=== PATIENT | female | born 1925 | race Caucasian/White ===

== ENCOUNTER 2016-09-02 08:06 | Emergency (ER) | payer MEDICARE ==
[2016-09-02] MEDS ORDERED: NS 0.9% 1000 ML* 2,000 ML IV ONE (08:58)
[2016-09-02 09:53] LABS: Hematocrit 47 % (35-47); Mean Corpuscular HGB Conc 32 g/dl (31-36); Mean Corpuscular Hemoglobin 30 pg (27-31); Mean Corpuscular Volume 92 fL (80-97); Mean Platelet Volume 8 um3 (7.4-10.4); Red Blood Count 5.08 10^6/ul (4.0-5.4); Red Cell Distribution Width 14 % (10.5-15); White Blood Count 6.9 10^3/ul (3.5-10.8)
[2016-09-02 10:07] LABS: Albumin 3.6 g/dL (3.2-5.2); BUN/Creatinine Ratio 29.1 (8-20); C Reactive Protein 4.13 mg/L (< 5.00); Calcium 8.9 mg/dL (8.6-10.3); EGFR African American 88.1 (>60); EGFR Non-African American 68.5 (>60); Globulin 3.4 g/dL (2-4); Potassium 4.2 mmol/L (3.5-5.0); Total Bilirubin 0.4 mg/dL (0.2-1.0)
[2016-09-02] MEDS ORDERED: Iohexol 300* (CONTRAST) 10 ML SDV IV ONE (10:10)
--- NOTE | 2016-09-02 12:24 | RAD ---
Indication: Right lower quadrant pain, colitis and rectal bleeding. Contrast: Administered 85.0 ml of OMNIPAQUE 300 mgi/ml CT of the abdomen and pelvis was performed after oral and IV contrast administration. Coronal and sagittal reconstructed images were obtained. Comparison is made with previous exam dated November 26, 2012. Lung bases demonstrate no pleural fluid, nodules or masses. Heart is of normal size without evidence of pericardial effusion. Liver is normal in size. No focal lesions or intrahepatic biliary duct dilatation is noted. The gallbladder demonstrates no calcified gallstones. No pericholecystic fluid or wall thickening is identified. Common duct is not dilated. The pancreas demonstrates no mass or pancreatic ductal dilatation. Calcifications of the pancreas are noted which is felt to represent splenic artery calcifications. Additional pancreatic calcifications are noted in the head of the pancreas this may be sequela from prior pancreatitis. The spleen is normal in size. No adrenal masses are noted. The kidneys demonstrates no hydronephrosis. Small cortical cysts are noted in the right kidney. Atherosclerotic aorta is noted. No dilated small bowel noted. CT of the pelvis demonstrates iliac arteries to be unremarkable. Prostate is unremarkable. Diverticulosis without definite evidence of diverticulitis is noted. Urinary bladder is unremarkable. No hernias are noted. No evidence of bowel obstruction is noted. IMPRESSION: No evidence of bowel obstruction is noted. Diverticulosis sigmoid colon without definite evidence of diverticulitis. No other masses or fluid collections are noted. There is evidence of prior pancreatitis.
[2016-09-02 13:26] VITALS: BP 157/65
--- NOTE | 2016-09-02 14:00 | ED ---
Asuncion Mederos Auryana, scribed for Eh Elizondo MD on 09/02/16 at 0912 . GI/ HPI - HPI Summary HPI Summary: 89 year old female presents with abnormal bowel movements starting yesterday. Patient states "air-like" BM with blood containing mucus- started as bright red yesterday but is now dark red today. She reports colicy abdominal pressure, BREWSTER - patient reports normal, and lower extremity edema but denies nausea, dizziness , abdominal pain, chest pain, or any straining with BMs. Her last normal BM was 2 days ago - no melena, blood, or mucus. She denies any previous episodes. PMHx is significant for CAD-suspected, 3 sections, hysterectomy with appendectomy. NO PMHx of diverticulosis, hemorrhoids, or DM. No previous colonoscopy and no FMHx of colon CA She is a former smoker. - History of Current Complaint Chief Complaint: EDGIBleed Time Seen by Provider: 09/02/16 08:12 Stated Complaint: RECTAL BLEEDING Hx Obtained From: Patient Onset/Duration: Started Days Ago - 1, Still Present Timing: Constant Severity: Mild Current Severity: Mild Pain Intensity: 0 Location of Pain: RLQ, LLQ Pain Characteristics: Colicy - not pain Associated Signs and Symptoms: Positive: Abdominal Pain - states pressure not pain, Other: - SOB - but nml per patient, LE edema - per patient. Negative: Dizziness, Nausea, External Hemorrhoid, Diarrhea, Fever, Chest Pain - Allergy/Home Medications Allergies/Adverse Reactions: Allergies Allergy/AdvReac Type Severity Reaction Status Date / Time Amoxicillin AdvReac Severe Nausea And Verified 09/02/16 08:25 Vomiting Benazepril AdvReac Severe Coughing Verified 09/02/16 08:25 Benzonatate AdvReac Severe Nausea And Verified 09/02/16 08:25 Vomiting Levofloxacin [From Levaquin] AdvReac Severe Nausea And Verified 09/02/16 08:25 Vomiting Aspirin AdvReac Mild See Comment Verified 09/02/16 08:25 some antibiotics AdvReac Severe Nausea And Uncoded 09/02/16 08:25 Vomiting PMH/Surg Hx/FS Hx/Imm Hx Endocrine/Hematology History: Denies: Hx Sickle Cell Disease Cardiovascular History: Reports: Hx Hypertension - WELL CONTROLLED WITH MEDICATION, Other Cardiovascular Problems/Disorders - LBBB, FOLLOWED BY DR. MARIE GI History: Reports: Hx Ulcer - HX OF DUODENAL ULCER, Other GI Disorders - VERY SENSATIVE TO ABX, CAUSE GI UPSET History: Denies: Other Problems/Disorders Musculoskeletal History: Reports: Hx Arthritis - GENERALIZED, Other Musculoskeletal History - NECK PROBLEMS, BACK PROBLEMS T8-9, SEES CHIROPRACTOR Sensory History: Reports: Hx Cataracts - BILAT, HAS HAD SURGERY WITH IMPLANTS, Hx Contacts or Glasses - GLASSES, Hx Glaucoma Denies: Hx Hearing Aid Opthamlomology History: Reports: Hx Cataracts - BILAT, HAS HAD SURGERY WITH IMPLANTS, Hx Contacts or Glasses - GLASSES, Hx Glaucoma Neurological History: Reports: Hx Nerve Disease - CARPAL TUNNEL LEFT - Cancer History Cancer Type, 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 1953 HYSTERECTOMY-[facility]. 2011 BILATERAL CATARACT SURG- [facility] [place] LEFT CARPAL TUNNEL RELEASE- [facility] [place]. [place]- [facility], LEFT BACK-[facility] [place] Hx Anesthesia Reactions: No Infectious Disease History: No Infectious Disease History: Denies: Traveled Outside the [place] in Last 30 Days - Social History Occupation: Retired Lives: With Family Alcohol Use: None Substance Use Type: Reports: None Smoking Status (MU): Former Smoker Amount Used/How Often: 1 PPD FOR 31 YRS Length of Time of Smoking/Using Tobacco: 31 YRS Have You Smoked in the Last Year: No Review of Systems Constitutional: Negative Negative: Fever Eyes: Negative ENT: Negative Cardiovascular: Negative Negative: Chest Pain Positive: Shortness Of Breath - normal per patient Positive: Abdominal Pain - colicy not pain . Negative: Nausea Genitourinary: Negative Musculoskeletal: Negative Skin: Negative Neurological: Negative Psychological: Normal All Other Systems Reviewed And Are Negative: Yes Physical Exam - Summary Physical Exam Summary: The patient is well-nourished in no acute distress and in no acute pain. The skin is warm and dry and skin color reflects adequate perfusion. skin turgor. HEENT: The head is normocephalic and atraumatic. The pupils are equal and reactive. The conjunctivae are clear and without drainage. Nares are patent and without drainage. Mouth reveals dry mucous membranes and the throat is without erythema and exudate. The external ears are intact. The ear canals are patent and without drainage. The tympanic membranes are intact. No hemotypanum. Neck is supple with full range of motion and non-tender. There are no carotid bruits. There is no neck vein distension. Respiratory: Chest is non-tender. Lungs are clear to auscultation and breath sounds are symmetrical and equal. Cardiovascular: Heart has a regular rate and rhythm. There is no murmur or rub auscultated. There is no pitting peripheral edema and pulses are symmetrical and equal. Abdomen: The abdomen is soft. RLQ pain with deep palpation. There are normal bowel sounds heard in all four quadrants and there is no organomegaly palpated. Normal bowel sounds. Musculoskeletal: There is no back pain noted. Extremities are non-tender with full range of motion. There is good capillary refill. There is no peripheral edema or calf tenderness elicited. Neurological: Patient is alert and oriented to person, place and time. The patient has symmetrical motor strength in all four extremities. Cranial nerves are grossly intact. Deep tendon reflexes are symmetrical and equal in all four extremities. Psychiatric: The patient has an appropriate affect and does not exhibit any anxiety or depression. Rectal exam - no external hemorrhoids and no internal masses. No anal fissures. Blood present. Triage Information Reviewed: Yes Vital Signs On Initial Exam: Initial Vitals Temp Pulse Resp BP Pulse Ox 98.9 F 83 20 180/78 95 09/02/16 08:09 09/02/16 08:09 09/02/16 08:09 09/02/16 08:09 09/02/16 08:09 Vital Signs Reviewed: Yes Diagnostics - Vital Signs Vital Signs Temp Pulse Resp BP Pulse Ox 09/02/16 08:12 99.2 F 85 16 180/78 94 09/02/16 08:09 98.9 F 83 20 180/78 95 - Laboratory Lab Results: Lab Results 09/02/16 09/02/16 09/02/16 Range/Units 09:30 09:30 09:30 WBC 6.9 (3.5-10.8) 10^3/ul RBC 5.08 (4.0-5.4) 10^6/ul Hgb 15.0 (12.0-16.0) g/dl Hct 47 (35-47) % MCV 92 (80-97) fL MCH 30 (27-31) pg MCHC 32 (31-36) g/dl RDW 14 (10.5-15) % Plt Count 158 (150-450) 10^3/ul MPV 8 (7.4-10.4) um3 Neut % (Auto) 77.2 (38-83) % Lymph % (Auto) 13.5 L (25-47) % Morton % (Auto) 8.5 (1-9) % Eos % (Auto) 0.1 (0-6) % Baso % (Auto) 0.7 (0-2) % Absolute Neuts (auto) 5.3 (1.5-7.7) 10^3/ul Absolute Lymphs (auto) 0.9 L (1.0-4.8) 10^3/ul Absolute Monos (auto) 0.6 (0-0.8) 10^3/ul Absolute Eos (auto) 0 (0-0.6) 10^3/ul Absolute Basos (auto) 0 (0-0.2) 10^3/ul Absolute Nucleated RBC 0 10^3/ul Nucleated RBC % 0 INR (Anticoag Therapy) 1.06 (0.89-1.11) Sodium 136 (133-145) mmol/L Potassium 4.2 (3.5-5.0) mmol/L Chloride 102 (101-111) mmol/L Carbon Dioxide 30 (22-32) mmol/L Anion Gap 4 (2-11) mmol/L BUN 23 (6-24) mg/dL Creatinine 0.79 (0.51-0.95) mg/dL Est GFR ( Amer) 88.1 (>60) Est GFR (Non-Af Amer) 68.5 (>60) BUN/Creatinine Ratio 29.1 H (8-20) Glucose 101 H (70-100) mg/dL Lactic Acid (0.5-2.0) mmol/L Calcium 8.9 (8.6-10.3) mg/dL Total Bilirubin 0.40 (0.2-1.0) mg/dL AST 16 (13-39) U/L ALT 10 (7-52) U/L Alkaline Phosphatase 62 (34-104) U/L Total Creatine Kinase 39 (10-223) U/L C-Reactive Protein 4.13 (< 5.00) mg/L Total Protein 7.0 (6.4-8.9) g/dL Albumin 3.6 (3.2-5.2) g/dL Globulin 3.4 (2-4) g/dL Albumin/Globulin Ratio 1.1 (1-3) Lipase 32 (11.0-82.0) U/L /09/14 Range/Units 09:30 WBC (3.5-10.8) 10^3/ul RBC (4.0-5.4) 10^6/ul Hgb (12.0-16.0) g/dl Hct (35-47) % MCV (80-97) fL MCH (27-31) pg MCHC (31-36) g/dl RDW (10.5-15) % Plt Count (150-450) 10^3/ul MPV (7.4-10.4) um3 Neut % (Auto) (38-83) % Lymph % (Auto) (25-47) % Morton % (Auto) (1-9) % Eos % (Auto) (0-6) % Baso % (Auto) (0-2) % Absolute Neuts (auto) (1.5-7.7) 10^3/ul Absolute Lymphs (auto) (1.0-4.8) 10^3/ul Absolute Monos (auto) (0-0.8) 10^3/ul Absolute Eos (auto) (0-0.6) 10^3/ul Absolute Basos (auto) (0-0.2) 10^3/ul Absolute Nucleated RBC 10^3/ul Nucleated RBC % INR (Anticoag Therapy) (0.89-1.11) Sodium (133-145) mmol/L Potassium (3.5-5.0) mmol/L Chloride (101-111) mmol/L Carbon Dioxide (22-32) mmol/L Anion Gap (2-11) mmol/L BUN (6-24) mg/dL Creatinine (0.51-0.95) mg/dL Est GFR ( Amer) (>60) Est GFR (Non-Af Amer) (>60) BUN/Creatinine Ratio (8-20) Glucose (70-100) mg/dL Lactic Acid 0.9 (0.5-2.0) mmol/L Calcium (8.6-10.3) mg/dL Total Bilirubin (0.2-1.0) mg/dL AST (13-39) U/L ALT (7-52) U/L Alkaline Phosphatase (34-104) U/L Total Creatine Kinase (10-223) U/L C-Reactive Protein (< 5.00) mg/L Total Protein (6.4-8.9) g/dL Albumin (3.2-5.2) g/dL Globulin (2-4) g/dL Albumin/Globulin Ratio (1-3) Lipase (11.0-82.0) U/L Result Diagrams: 09/02/16 09:30 09/02/16 09:30 Lab Statement: Any lab studies that have been ordered have been reviewed, and results considered in the medical decision making process. - CT ABD/PEL with contrast CT Interpretation: Positive (See Comments) - IMPRESSION: No evidence of bowel obstruction is noted. Diverticulosis sigmoid colonwithout definite evidence of diverticulitis. No other masses or fluid collections are noted. There is evidence of prior pancreatitis. CT Interpretation Completed By: Radiologist - EKG 09:01 EKG Interpretation: LBBB, L axis, sinus rhythm - Additional Comments Diagnostic Additional Comments: Stool Sample - positive blood Re-Evaluation - Re-Evaluation First Eval Re-Evaluation Time: 13:13 - dicussed labs, imaging, and plan of action Change: Unchanged Comment: patient wishes to go home. GIGU Course/Dx - Course Assessment/Plan: 89 year old female presents with blood in mucus. She states decreased BM - "air-like" with blood in mucus that was bright red yesterday but is not dark red. She reports colicy adbominal pressure, lower extremity edema. PMHx is significant for 3 sections and hysterectomy wiht appendectomy. Bloodwork , Stool sample (positive blood in mucus), EKG (LBBB, Left axis, sinus rhythm), ABD/PEL CT (diverticulosis) ordered. Discussed labwork, imaging and plan of action with patient and she wishes to go home. Diagnosis: Rectal Bleeding - recommended to return if her symptoms worsen or if she experiences fever, abdominal pain, increased bleeding, dizziness, or syncope. - Diagnoses Differential Diagnoses - Female: Colitis, Diverticulosis, Hemorrhoids, Other - tumor, diverticulitis Provider Diagnoses: Rectal bleed Discharge - Discharge Plan Condition: Stable Disposition: HOME Patient Education Materials: Rectal Bleeding (ED) Referrals: Lex Marie MD [Primary Care Provider] - 2 Days Additional Instructions: PLEASE RETURN IF SYMPTOMS PERSIST OR IF YOU DEVELOP ABDOMINAL PAIN, FEVER, INCREASED RECTAL BLEEDING, LIGHTHEADEDNESS, DIZZINESS, OR EXPERIENCE ANY FAINTING SPELLS OR SYNCOPE. The documentation as recorded by the Asuncion harrison Auryana accurately reflects the service I personally performed and the decisions made by , Eh Elizondo MD.
--- NOTE | 2016-09-03 16:55 | ED ---
Progress - Progress Note Progress Note: Stool occult blood sample (+). Note indicates provider was aware this was the case - pt d/c'd w/ GI bleed dx and education - danger s/sx reviewed and f/u advised. H&H were stable as were vitals. No further action at this time. Re-Evaluation - Re-Evaluation First Eval Re-Evaluation Time: 13:13 - dicussed labs, imaging, and plan of action Change: Unchanged Comment: patient wishes to go home. Course/Dx - Diagnoses Provider Diagnoses: Rectal bleed
== END 2016-09-02 13:24 | disposition home or self-care (01) ==
LOC: ED 08:06
DX: K62.5 Hemorrhage of anus and rectum (principal); R10.9 Unspecified abdominal pain; R06.02 Shortness of breath; R60.0 Localized edema; Z87.891 Personal history of nicotine dependence
CPT/HCPCS: 36415; 74177; 80053; 82272; 82550; 83605; 83690; 85025; 85610; 86140; 93005; 96360; 99283; Q9967